=== PATIENT | female | born 1985 | race Caucasian/White ===

== ENCOUNTER → 2017-07-15 12:20 | Outpatient (CLI) | payer OTHER ==
[2013-12-01 08:21] VITALS: BMI 25.9
[~2017-07-15 12:20] MED LIST: ALLERGY INJ; COLACE100 MG PO; ESTRACE2 MG PO; MILK OF MAGNESI30 ML PO; MIRALAX17 GM PO; NORCO 10/325 TA1 TA1 PO; PHENTERMINE OR; SYNTHROID25 MCG; TOPIRAMATE OR; VENTOLIN HFA18 GM INH; VITAMIN D31000 UNIT PO
== END | disposition home or self-care (01) ==
LOC: D.CT 12:20
DX: R10.9 Unspecified abdominal pain (principal)